=== PATIENT | female | born 1985 | race Caucasian/White ===

== ENCOUNTER → 2025-03-04 07:08 | Outpatient (REF) | payer OTHER, SELFPAY | LOC: WDC 07:08 | PROVIDERS: ATTENDING PHYSICIAN Nurse Practitioner Family | DX: Z12.31 Encounter for screening mammogram for malignant neoplasm of breast (principal) | CPT/HCPCS: 77063; 77067 ==

== ENCOUNTER 2025-06-14 19:32 | Emergency (ER) | payer OTHER, SELFPAY ==
[2025-06-14 19:37] VITALS: BP 133/60
--- NOTE | 2025-06-14 21:11 | ED.GENMED ---
History of Present Illness
General
Chief Complaint: DVT/Possible Blood Clot
Source: patient
Exam Limitations: none
Time Seen by Provider: 06/14/25 20:14
History of Present Illness
History of Present Illness:
Pain in the right leg after running a half marathon. Some tingling in the foot earlier today. No current tingling. No chest pain or shortness of breath no other complaints.
Past History
Past History
ED Past Medical History: None
ED Past Surgical History: Orthopedic
Review of Systems
Review of Systems
All Other Systems: Not applicable
Constitutional: Denies fever
Respiratory: Reports no symptoms
Cardiac: Reports no symptoms
Phy Exam
Physical Exam
Physical Exam:
General: Nontoxic appearing in no distress
Skin: Warm and dry, no rash
Neuro: Alert, nontoxic, grossly nonfocal
Psychiatric: Good eye contact and appropriate
Musculoskeletal: Right calf grossly normal. No unusual swelling. No severe tenderness. No cord. Good distal pulses and color. Good capillary refill. Motor or sensory neurovascular intact.
Course
Orders/Labs/Results
Orders:
Orders
06/14/25 19:40
Periph Venous Lwr Ext Rt US [US Periph Venous LOWER Ext RT] Urgent
Comment:
Reason For Exam: right calf pain
Vital Signs
Initial and Last Documented VS:
Initial Vital Signs
Temp Pulse Resp BP Pulse Ox
98.5 F 76 18 133/60 99
06/14/25 19:37 06/14/25 19:37 06/14/25 19:37 06/14/25 19:37 06/14/25 19:37
Last Documented Vital Signs
Temp Pulse Resp BP Pulse Ox
98.5 F 76 18 133/60 99
06/14/25 19:37 06/14/25 19:37 06/14/25 19:37 06/14/25 19:37 06/14/25 21:14
MDM/Problems Addressed
Differential Diagnosis Includes:
Ultrasound is negative. Very low suspicion for compartment syndrome. Likely STRAIN or tear. Symptomatic treatment and follow-up
*Radiology
Radiology exam reviewed: radiology read reviewed (Negative ultrasound)
*Pulse Oximetry
SaO2: 99
Oxygen Mode of Delivery: Room air
Patient hypoxic: no
*Critical Care Note
Total Time (30-74mins, 75-104mins- exclusive of procedures): Not Applicable
ED Attending Note
-
Portions of this chart may have been created with voice recognition software.� Occasional wrong word or��sound alike� substitutions may have occurred due to the inherent limitations of voice recognition software.
Discharge Plan
Departure
Patient Disposition: Home (Routine Discharge)
Date of Disposition: 06/14/25
Time of Disposition: 21:13
Patient with high blood pressure during this ER visit?: Yes
Discharge Problem:
Right calf pain
Instructions: BLOOD PRESSURE
Referrals:
Dominique Panda CRNP [Family Provider, Internal Medicine]
Activity Restrictions/Additional Instructions:
Advil or Motrin for pain. You can also take Tylenol
Rest the right leg
Recheck with increased pain swelling redness increased tingling numbness or if symptoms of not resolved in 2 to 3 days
Repeat ultrasound in 7 to 10 days with persistent symptoms
Interventions
Interventions:
*Risk Screen - Suicide Last Done: 06/14/25 19:37
*General Assessment Last Done: 06/14/25 19:37
*Neglect/Abuse Screening Last Done: 06/14/25 19:37
*ED- Fall Risk Assessment Last Done: 06/14/25 19:37
*ED COVID-19 Vaccine History Last Done: 06/14/25 19:37
*ED Influenza Vaccine History Last Done: 06/14/25 19:37
*Nursing Disposition Last Done: 06/14/25 21:24
ED- Cardiac Assessment Last Done: 06/14/25 19:45
ED- Pulmonary Assessment Last Done: 06/14/25 19:45
ED-Peripheral Vascular Assessment Last Done: 06/14/25 19:45
ED-Skin Assessment Last Done: 06/14/25 19:45
Discharge Date and Time
Discharge Date/Time: 06/14/25 21:28
Print Language: [place]
== END 2025-06-14 21:28 | disposition home or self-care (01) ==
LOC: EMR 19:32
PROVIDERS: EMERGENCY PHYSICIAN Emergency Medicine; FAMILY PHYSICIAN Nurse Practitioner Adult Health
DX: M79.661 Pain in right lower leg (principal); R03.0 Elevated blood-pressure reading, without diagnosis of hypertension
CPT/HCPCS: 99284; 93971